=== PATIENT | female | born 2000 | race Caucasian/White ===

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

== ENCOUNTER 2020-01-04 15:59 | Outpatient (CLI) | payer OTHER ==
[2020-01-04 17:13] VITALS: BP 134/84; PULSE 114; RESP 16; TEMP 97.6
--- NOTE | 2020-01-18 08:46 | P.MSEPDOC ---
Presenting Problems - Arrival Data Date of Arrival on Unit: 01/04/20 Time of Arrival on Unit: 15:59 Mode of Transport: Ambulatory - Complaint OB-Reason for Admission/Chief Complaint: Possible Onset of Labor Comment: Pt states she has been having contractions since 0200 every 1-2 mins and rates them 12/08 Medical History - Information : 1 Para: 0 Term: 0 : 0 Abortions: Spontaneous or Elective: 0 Number of Living Children: 0 - Gestational Age Gestational Age by SABINO (wks/days): 39 Weeks and 3 Days Review of Systems - Review of Systems Constitutional: No problems Breast: No problems ENT: No problems Cardiovascular: No problems Respiratory: No problems Gastrointestinal: No problems Genitourinary: No problems Musculoskeletal: No problems Neurological: No problems Skin: No problems Vital Signs - Temperature Temperature: 97.6 F Temperature Source: Temporal Artery Scan - Pulse Pulse Oximetery Pulse Rate: 114 Pulse Assessment Method: Automatic Cuff - Respirations Respiratory Rate: 16 Oxygen Delivery Method: Room Air O2 Sat by Pulse Oximetry: 96 - Blood Pressure Right Arm Blood Pressure: 134/84 Blood Pressure Mean: 100 Blood Pressure Source: Automatic Cuff Medical Screen Scoring (Pre) - Cervical Exam Dilation: 1-3 cm = 1 Membranes: Intact - Uterine Contractions Frequency: N/A Duration: N/A Intensity: N/A - Maternal Vital Signs Maternal Temperature: N/A Maternal Blood Pressure: N/A Signs of Preeclampsia: N/A Maternal Respirations: N/A - Maternal Trauma Maternal Trauma: N/A - Assessment - Baby A Baseline FHR: 140 Heart Rate - NICHD Category: Category I (Normal) = 0 NST: Reactive Position: N/A Station: N/A - Total Score - Baby A Total Score - Baby A: 1 - Total Score - Baby B Total Score - Baby B: 1 - Total Score - Baby C Total Score - Baby C: 1 - Level of Risk - Baby A Level of Risk - Baby A: Low (0-5) - Level of Risk - Baby B Level of Risk - Baby B: Low (0-5) - Level of Risk - Baby C Level of Risk - Baby C: Low (0-5) Physician Notification (Pre) - Physician Notified Physician Notified Date: 01/04/20 Physician Notified Time: 16:53 New Order Received: Yes Disposition - Disposition OB Disposition: Discharge to home Discharge Date: 01/04/20 Discharge Time: 17:00 I agree with the RN Medical Screening Exam: No Physician's MSE Comment: inadequate documentation Risk & Benefit of care provided described in d/c instruction: No Diagnosis: false labor
== END 2020-01-04 17:00 | disposition home or self-care (01) ==
LOC: FBPOP 15:59
PROVIDERS: ATTEND Obstetrics & Gynecology
DX: O47.1 False labor at or after 37 completed weeks of gestation (principal); Z3A.39 39 weeks gestation of pregnancy
CPT/HCPCS: 59025; G0463; 99213

== ENCOUNTER 2020-01-12 05:15 | Inpatient (IN) | payer OTHER ==
[2020-01-12] MEDS ORDERED: OXYTOCIN 10 UNIT/ML 1 ML VIAL IM PRN (06:45)
[2020-01-12] MEDS ORDERED: LIDOCAINE 0.5% (PF) 5 MG/ML (50 ML SDV) SQ PRN (06:45)
[2020-01-12] MEDS ORDERED: TERBUTALINE 1 MG/ML VIAL SQ PRN (06:45)
[2020-01-12] MEDS ORDERED: CARBOPROST TROMETHAMINE 250 MCG/ML 1 ML AMP IM PRN (06:45)
[2020-01-12] MEDS ORDERED: METHYLERGONOVINE 0.2 MG/ML 1 ML AMP IM PRN (06:45)
[2020-01-12 07:02] LABS: Basophils % (A) 0 %; Eosinophils # (A) 0.1 k/uL (0-0.7); Eosinophils % (A) 1 %; HCT 27.9 % (34.0-46.0); HGB 8.9 gm/dL (11.4-16.0); Hypochromasia Slight; Lymphocytes # (A) 2.1 k/uL (1.0-4.8); Lymphocytes % (A) 27 %; MCH 27.3 pg (25.0-35.0); MCHC 31.9 g/dL (31.0-37.0); MCV 85.6 fL (80.0-100.0); Mean Platelet Volume 11.6; Monocytes # (A) 0.6 k/uL (0-1.0); Monocytes % (A) 8 %; Neutrophils # (A) 4.8 k/uL (1.3-7.7); Neutrophils % (A) 62 %; Platelet Count 212 k/uL (150-450); RBC 3.25 m/uL (3.80-5.40); RDW 14.9 % (11.5-15.5); WBC 7.8 k/uL (4.0-11.0)
[2020-01-12 07:24] LABS: Large Platelets Present
[2020-01-12] MEDS: LACTATED RINGERS 1,000 ML IV SCH ×4 (07:41→17:35)
[2020-01-12] MEDS ORDERED: OXYTOCIN 30 UNITS/500 ML NS 30 UNIT in SALINE 1 500ML.BAG IV SCH (08:30)
--- NOTE | 2020-01-12 12:56 | P.HPOB ---
History of Present Illness H&P Date: 01/12/20 Chief Complaint: 40-4/7 weeks, early labor The patient is a 19-year-old 1 para 0 admitted at 40-4/7 weeks as established by last menstrual period and confirmed by 20 week ultrasound. She is admitted with fairly regular contractions though no cervical change following a relatively deep and prolonged deceleration while in triage lasting for approximately 4 minutes. Baseline did return to normal with good variability. At this time, all signs are reassuring. She was admitted for augmentation of labor secondary to the prolonged deceleration and her post dates status. Her has been entirely uncomplicated and group B strep status is negative. Obstetrical history: 1 para 0 with current statistics listed in history present illness. EDC of 01/08/2020 was established by last menstrual period and confirmed by 20 week ultrasound. Laboratory workup demonstrates a blood type of A+ with a negative antibody screen. Rubella status is immune. The remainder the laboratory workup was within normal limits. One hour Glucola was normal and group B strep status is negative. Gynecologic history: Uncomplicated with no history of any infections to include STDs. Review of Systems Review of systems is confined to history of present illness. Past Medical History Past Medical History: No Reported History History of Any Multi-Drug Resistant Organisms: None Reported Past Surgical History: No Surgical Hx Reported Past Anesthesia/Blood Transfusion Reactions: No Reported Reaction Past Psychological History: No Psychological Hx Reported Smoking Status: Never smoker Past Alcohol Use History: None Reported Past Drug Use History: None Reported - Past Family History Father Family Medical History: No Reported History Medications and Allergies Home Medications Medication Instructions Recorded Confirmed Type Pnv No.95/Ferrous Fum/Folic AC 1 each PO DAILY #90 tablet 05/17/19 01/12/20 Rx [ Multivitamin Tablet] Allergies Allergy/AdvReac Type Severity Reaction Status Date / Time No Known Allergies Allergy Verified 01/12/20 05:22 Exam Vital Signs Temp Pulse Resp BP 01/12/20 06:43 97.5 F L 75 18 124/72 Intake and Output 01/11/20 01/12/20 01/12/20 22:59 06:59 14:59 Other: Weight 86.183 kg In general, this is a well-developed, well-nourished white female in no acute distress though she is beginning to become uncomfortable secondary to c ontractions. Her heart has a regular rhythm and rate without murmur. Her lungs are clear to auscultation bilaterally in all [place]. Her abdomen is gravid, nondistended, has normal active bowel sounds, is soft, nontender, and without any masses aside from uterine fundus. Her extremities without any cyanosis, clubbing, or significant edema and are nontender to palpation bilaterally. Digital cervical examination demonstrates her surgery 2 cm dilated, 70% effaced, the vertex in presentation at -2 station. Artificial rupture of membranes was carried out earlier demonstrating clear fluid. Results Result Diagrams: 01/12/20 06:40 Abnormal Lab Results - Last 24 Hours (Table) 01/12/20 Range/Units 06:40 RBC 3.25 L (3.80-5.40) m/uL Hgb 8.9 L (11.4-16.0) gm/dL Hct 27.9 L (34.0-46.0) % Assessment and Plan (1) Post-dates Current Visit: Yes Status: Acute Code(s): O48.0 - POST-TERM SNOMED Code(s): 08466890 (2) Active labor at term Current Visit: Yes Status: Acute Code(s): LDG9816 - SNOMED Code(s): 65358263 Plan: The patient is admitted for augmentation of labor. Pitocin augmentation has been started and artificial rupture of membranes carried out. She will continue to have close maternal and surveillance and expectant management will be practiced. She is a good candidate for either IV or epidural analgesia, whichever she may choose.
[2020-01-12] MEDS: BUTORPHANOL 1 MG/ML 1 ML VIAL IV PRN ×2 (12:57→14:46)
[2020-01-12] MEDS ORDERED: ROPIVACAINE 5MG/ML 20ML VIAL ONE (15:38)
[2020-01-12] MEDS ORDERED: SODIUM CHLORIDE 0.9% 100 ML BAG ONE (15:38)
[2020-01-12] MEDS ORDERED: fentaNYL (PF) 50 MCG/ML 5 ML AMP ONE (15:38)
[2020-01-12] MEDS ORDERED: BENZOCAINE/MENTHOL SPRAY 1 GM/SPRAY AEROSOL TOPICAL PRN (21:30)
[2020-01-12] MEDS ORDERED: diphenhydrAMINE 50 MG CAP PO PRN (21:30)
[2020-01-12] MEDS ORDERED: ZOLPIDEM 5 MG TAB PO PRN (21:30)
[2020-01-12] MEDS ORDERED: SIMETHICONE 80 MG CHEWABLE PO PRN (21:30)
[2020-01-12] MEDS ORDERED: diphenhydrAMINE 25 MG CAP PO PRN (21:30)
[2020-01-12] MEDS ORDERED: LANOLIN CREAM 5 GM TUBE TOPICAL PRN (21:30)
[2020-01-12] MEDS ORDERED: HYDROCORTISONE 2.5% RECTAL CREAM 30 GM TUBE RECTAL PRN (21:30)
[2020-01-12] MEDS ORDERED: ACETAMINOPHEN TAB 325 MG TAB PO PRN (21:30)
[2020-01-12] MEDS ORDERED: HYDROcodone/APAP 7.5-325MG 1 EACH TAB PO PRN (21:30)
[2020-01-12] MEDS ORDERED: OXYTOCIN 20 UNITS/1000 ML NS 1,000 ML IV SCH (21:30)
[2020-01-12] MEDS ORDERED: HYDROcodone/APAP 5-325MG 1 EACH TAB PO PRN (21:30)
[2020-01-12] MEDS ORDERED: diphenhydrAMINE 50 MG/ML 1 ML VIAL IVP PRN ×2 (21:30)
--- NOTE | 2020-01-12 21:33 | P.PROBDLV ---
Vaginal Delivery Note - . Vaginal Delivery Note: The patient is a 19-year-old 1 para 0 admitted at 40-4/7 weeks by good dating parameters. She is admitted for postdates augmentation of labor in early labor and following a relatively prolonged deceleration which returned to normal baseline with a category 1 tracing. Her has been uncomplicated and group B strep status is negative. On labor and delivery, she had Pitocin augmentation started followed by artificial rupture of membranes. She made a verage progress through the latent phase of labor and had an epidural catheter placed for analgesia around the onset of the active phase of labor. She then remained 5-6 cm for approximately 4-6 hours after which time she made fairly quick progress from 6 to complete. She pushed over the course were approximately 15-20 minutes to a normal spontaneous vaginal delivery of a viable 8 lbs. 2 oz. baby boy with Apgars of 7 at 1 minute and 9 at 5 minutes delivered in the direct occiput anterior position. The placenta was delivered spontaneously, intact, and grossly normal with a grossly normal, marginally inserted three-vessel cord. There was a small second-degree laceration with extension onto the right labia which was repaired in standard fashion using 3-0 chromic catgut without difficulty. Estimated blood loss for the case was approximately 200 mL. There were no complications. All sponge, instrument, and needle counts were correct. Both mother and are resting comfortably in r ecovery.
[2020-01-12] MEDS: IBUPROFEN 600 MG TAB PO PRN (23:03)
[2020-01-13 07:22] LABS: Basophils % (A) 0 %; Eosinophils % (A) 0 %; HCT 23.9 % (34.0-46.0); HGB 7.6 gm/dL (11.4-16.0); Hypochromasia Slight; Lymphocytes # (A) 1.7 k/uL (1.0-4.8); Lymphocytes % (A) 15 %; MCH 27.4 pg (25.0-35.0); MCHC 31.8 g/dL (31.0-37.0); MCV 86.2 fL (80.0-100.0); Mean Platelet Volume 11.5; Monocytes # (A) 0.6 k/uL (0-1.0); Monocytes % (A) 5 %; Neutrophils # (A) 8.6 k/uL (1.3-7.7); Neutrophils % (A) 78 %; RBC 2.77 m/uL (3.80-5.40); RDW 15.1 % (11.5-15.5); WBC 11.1 k/uL (4.0-11.0)
[2020-01-13 08:12] LABS: Large Platelets Present; Platelet Count 159 k/uL (150-450)
--- NOTE | 2020-01-13 10:14 | P.DS ---
Providers Date of admission: 01/12/20 06:35 Expected date of discharge: 01/13/20 Attending physician: Steve Edmondson Primary care physician: Stated None - Discharge Diagnosis(es) (1) Post-dates Current Visit: Yes Status: Acute (2) Active labor at term Current Visit: Yes Status: Acute (3) Normal spontaneous vaginal delivery Current Visit: Yes Status: Acute Hospital Course: The patient is a 19-year-old 1 para 0 admitted at 40-4/7 weeks by good dating parameters. She is admitted likely in early labor but following a deep and prolonged deceleration which returned to baseline and was ultimately had category 1 tracing. Her has otherwise been uncomplicated and group B strep status is negative. On labor and delivery, she had Pitocin started followed by artificial rupture of membranes for clear fluid. She made slow progress initially into the active phase of labor and remained at approximately 567 m dilated for approximately 4-5 hours. She then progressed fairly quickly through the remainder of the active phase to complete and pushed to a normal spontaneous vaginal delivery of a viable 8 lbs. 2 oz. baby boy with Apgars of 7 at 1 minute and 9 at 5 minutes. Her course was unremarkable vital signs remaining stable and her temperature was afebrile throughout. She was deemed stable for discharge on day #1 was discharged home to follow- up in the office in 6 weeks' time routinely. Discharge instructions included calling for any significantly increased bleeding or foul-smelling lochia, significantly increased fever abdominal pain, perineal complaints, breast complaints, or anything else that concerned her. She was additionally instructed to have nothing in the vagina for at least 6 weeks time to include intercourse. She understood her instructions and agrees to follow up as noted above. Discharge medications included continued vitamins as she is currently intending to attempt to breast-feed. She was otherwise to use [id number] analgesic pain medications as needed. Maternal blood type is A+ and rubella status is immune. She does have a moderate amount of anemia was encouraged to use iron sulfate 1-2 times daily for the next month to rebuild her hemoglobin. Procedures: #1. Pitocin augmentation of her 2. Artificial rupture of membranes #3. Epidural analgesia #4. Normal spontaneous vaginal delivery #5. Repair of perineal laceration Patient Condition at Discharge: Stable Plan - Discharge Summary New Discharge Prescriptions: No Action Pnv No.95/Ferrous Fum/Folic AC [ Multivitamin Tablet] 1 each PO DAILY #90 tablet Discharge Medication List Pnv No.95/Ferrous Fum/Folic AC [ Multivitamin Tablet] 1 each PO DAILY #90 tablet 05/17/19 [Rx] Follow up Appointment(s)/Referral(s): Steve Edmondson MD [STAFF PHYSICIAN] - 6 Weeks Discharge Disposition: HOME SELF-CARE
[2020-01-13] MEDS: IBUPROFEN 600 MG TAB PO PRN (13:30)
[2020-01-13] MEDS: SENNOSIDES-DOCUSATE SODIUM 1 EACH TAB PO SCH ×2 (13:32→20:36)
[2020-01-13 20:36] VITALS: BP 118/72; PULSE 92; RESP 18; TEMP 97.8
== END 2020-01-13 21:50 | disposition home or self-care (01) | DRG 807 ==
LOC: FBPOP 05:15 → 4FBP 06:35
PROVIDERS: ADMIT Obstetrics & Gynecology Obstetrics; ATTEND Obstetrics & Gynecology
PROC: 10E0XZZ Delivery of Products of Conception, External Approach (ICD-10-PCS; principal; 2020-01-12)
PROC: 0KQM0ZZ Repair Perineum Muscle, Open Approach (ICD-10-PCS; 2020-01-12)
PROC: 10907ZC Drainage of Amniotic Fluid, Therapeutic from Products of Conception, Via Natural or Artificial Opening (ICD-10-PCS; 2020-01-12)
PROC: 3E0R3BZ Introduction of Anesthetic Agent into Spinal Canal, Percutaneous Approach (ICD-10-PCS; 2020-01-12)
DX: O48.0 Post-term pregnancy (principal); Z37.0 Single live birth; O76 Abnormality in fetal heart rate and rhythm complicating labor and delivery; O70.1 Second degree perineal laceration during delivery; O90.81 Anemia of the puerperium; D64.9 Anemia, unspecified; Z79.899 Other long term (current) drug therapy; Z3A.40 40 weeks gestation of pregnancy
CPT/HCPCS: 59025; 85025; 86850; 86900; 86901; 99213

== ENCOUNTER 2023-04-30 17:27 | Emergency (ER) | payer BC, OTHER ==
--- NOTE | 2023-04-30 18:11 | ED ---
General Adult HPI - General Source: patient Mode of arrival: ambulatory Limitations: no limitations <Owen Burrows - Last Filed: 04/30/23 18:13> - General Source: patient Mode of arrival: ambulatory Limitations: no limitations <Kierra Aguirre - Last Filed: 05/01/23 03:51> - General Chief complaint: Recheck/Abnormal Lab/Rx Stated complaint: wants a test to be sure she is Time Seen by Provider: 04/30/23 18:12 - History of Present Illness Initial comments: 22-year-old female presenting to the ED with a chief complaint of test. Patient states that she has taken 3 tests which have all been positive however patient states that she is in disbelief would like to have another test. (Owen Burrows) This is a 22-year-old female who presents to the emergency department for a test. LMP was 6 weeks ago. Patient is currently and has taken 3 tests at home that have all been positive. States that she would like to have this verified here. Denies any abdominal pain or vaginal bleeding and otherwise has no complaints. (Kierra Aguirre) - Related Data Previous Rx's Medication Instructions Recorded Pnv No.95/Ferrous Fum/Folic AC 1 each PO DAILY #90 tablet 05/17/19 [ Multivitamin Tablet] Allergies Allergy/AdvReac Type Severity Reaction Status Date / Time No Known Allergies Allergy Verified 04/30/23 17:52 Review of Systems ROS Other: All systems not noted in ROS Statement are negative. <Owen Burrows - Last Filed: 04/30/23 18:13> ROS Other: All systems not noted in ROS Statement are negative. <Kierra Aguirre - Last Filed: 05/01/23 03:51> ROS Statement: Those systems with pertinent positive or pertinent negative responses have been documented in the HPI. Past Medical History Past Medical History: No Reported History History of Any Multi-Drug Resistant Organisms: None Reported Past Surgical History: No Surgical Hx Reported Past Anesthesia/Blood Transfusion Reactions: No Reported Reaction Past Psychological History: No Psychological Hx Reported Smoking Status: Never smoker Past Alcohol Use History: None Reported Past Drug Use History: Marijuana - Past Family History Father Family Medical History: No Reported History <Owen Burrows - Last Filed: 04/30/23 18:13> General Exam Limitations: no limitations General appearance: alert Extremities exam: Present: normal inspection Back exam: Present: normal inspection Neurological exam: Present: alert <Owen Burrows - Last Filed: 04/30/23 18:13> Limitations: no limitations General appearance: alert, in no apparent distress Head exam: Present: atraumatic, normocephalic, normal inspection Respiratory exam: Present: normal lung sounds bilaterally. Absent: respiratory distress, wheezes, rales, rhonchi, stridor Cardiovascular Exam: Present: regular rate, normal rhythm, normal heart sounds. Absent: systolic murmur, diastolic murmur, rubs, gallop, clicks Neurological exam: Present: alert, oriented X3, CN II-XII intact Psychiatric exam: Present: normal affect, normal mood Skin exam: Present: warm, dry, intact, normal color. Absent: rash <Kierra Aguirre - Last Filed: 05/01/23 03:51> Course Vital Signs 04/30/23 17:49 Temperature 97.9 F Pulse Rate 109 H Respiratory 16 Rate Blood Pressure 137/85 O2 Sat by Pulse 98 Oximetry Medical Decision Making <Owen Burrows - Last Filed: 04/30/23 18:13> <Kierra Aguirre - Last Filed: 05/01/23 03:51> - Medical Decision Making Quicknote portion performed. Signed Owen Burrows PA-C (Owen Burrows) This is a 22-year-old female who presents to the emergency department for a test. Was pt. sent in by a medical professional or institution? @ -No Did you speak to anyone other than the patient for history? @ -No Did you review nursing and triage notes? @ -Yes, and I agree, it is accurate with regards to the patient's symptoms. Were old charts reviewed? @ -No Differential Diagnosis? @ -Not applicable EKG interpreted by me (3pts min.)? @ -None X-rays interpreted by me (1pt min.)? @ -None CT interpreted by me (1pt min.)? @ -None U/S interpreted by me (1pt. min.)? @ -None What testing was considered but not performed? (CT, X-rays, U/S, labs)? Why? @ -None What meds were considered but not given? Why? @ -None Did you discuss the management of the patient with other professionals? @ -No Did you reconcile home meds? @ -No Was smoking cessation discussed for >3mins.? @ -No Was critical care preformed (if so, how long)? @ -No Were there social determinants of health that impacted care today? How? (Homelessness, low income, unemployed, alcoholism, drug addiction, transportation, low edu. Level, literacy, decrease access to med. care, halfway, rehab)? @ -No Was there de-escalation of care discussed even if they declined? (Discuss DNR or withdrawal of care, Hospice)? @ -No What co-morbidities impacted this encounter? (DM, HTN, Smoking, COPD, CAD, Cancer, CVA, Hep., AIDS, mental health diagnosis, sleep apnea, morbid obesity)? @ -None Was patient admitted / discharged? @ -Discharged. Urine test positive. UA negative for signs of infection or asymptomatic bacteriuria. Findings reviewed with the patient. She is advised to begin taking a vitamin and become established with an [facility] for obstetrical care. Undiagnosed new problem with uncertain prognosis? @ -None Drug Therapy requiring intensive monitoring for toxicity (Heparin, Nitro, Insulin, Cardizem)? @ -None Were any procedures done? @ -None Diagnosis/symptom? @ - Acute, or Chronic, or Acute on Chronic? @ -Acute Uncomplicated (without systemic symptoms) or Complicated (systemic symptoms)? @ -Uncomplicated Side effects of treatment? @ -None Exacerbation, Progression, or Severe Exacerbation] @ -Not applicable Poses a threat to life or bodily function? @ -No Return precautions reviewed in depth, the patient is instructed to return to the emergency department with any new, worsening, or concerning symptoms. Patient verbalized understanding. This case was discussed in detail with the attending ED physician, Dr. Bajwa. Presentation, findings, and treatment plan discussed in detail as well. (Kierra Aguirre) - Lab Data Lab Results 04/30/23 04/30/23 Range/Units 17:53 18:14 Urine Color Colorless Urine Appearance Clear (Clear) Urine pH 7.5 (5.0-8.0) Ur Specific [place] 1.016 (1.001-1.035) Urine Protein Negative (Negative) Urine Glucose (UA) Negative (Negative) Urine Ketones Negative (Negative) Urine Blood Negative (Negative) Urine Nitrite Negative (Negative) Urine Bilirubin Negative (Negative) Urine Urobilinogen <2.0 (<2.0) mg/dL Ur Leukocyte Esterase Large H (Negative) Urine RBC 2 (0-5) /hpf Urine WBC 7 H (0-5) /hpf Ur Squamous Epith Cells 2 (0-4) /hpf Urine Mucus Rare H (None) /hpf Urine HCG, Qual Detected (Not Detectd) Disposition <Owen Burrows - Last Filed: 04/30/23 18:13> Is patient prescribed a controlled substance at d/c from ED?: No <Kierra Aguirre - Last Filed: 05/01/23 03:51> Clinical Impression: Disposition: HOME SELF-CARE Instructions (If sedation given, give patient instructions): (ED) Additional Instructions: Return to the emergency department with any new, worsening, or concerning symptoms. Your test is positive. Begin taking a vitamin. Make sure if you develop any pain, you only take Tylenol. Never take ibuprofen or any other anti-inflammatories in . Contact the [facility] office as listed below to become established for ongoing obstetrical care. Referrals: None,Stated [Primary Care Provider] - 1-2 days Zeina Bucio DO [Doctor of Osteopathic Medicine] - 1-2 days
[2023-04-30 18:12] VITALS: BP 137/85; PULSE 109; RESP 16; TEMP 97.9
[2023-04-30 18:49] LABS: Appearance,Urine Clear (Clear); Bilirubin,Urine Negative (Negative); Blood,Urine Negative (Negative); Color,Urine Colorless; Glucose,Urine (UA) Negative (Negative); Ketones,Urine Negative (Negative); Leukocyte Esterase,Urine Large (Negative); Mucus,Urine Rare /hpf; Nitrite,Urine Negative (Negative); PH, Urine 7.5 (5.0-8.0); Protein,Urine Negative (Negative); RBC,Urine 2 /hpf (0-5); Specific Gravity,Urine 1.016 (1.001-1.035); Squamous Epithelial Cell,Urine 2 /hpf (0-4); Urobilinogen,Urine <2.0 mg/dL (<2.0); WBC,Urine 7 /hpf (0-5)
== END 2023-04-30 20:11 | disposition home or self-care (01) ==
LOC: EC 17:27
DX: Z32.01 Encounter for pregnancy test, result positive (principal); O99.320 Drug use complicating pregnancy, unspecified trimester; F12.90 Cannabis use, unspecified, uncomplicated
CPT/HCPCS: 81001; 81025; 99283

== ENCOUNTER 2023-07-10 22:42 | Emergency (ER) | payer OTHER ==
[2023-07-10 23:02] VITALS: RESP 16
[2023-07-11 00:08] LABS: ALT 19 U/L (4-34); AST 33 U/L (14-36); African American GFR (CKD) >90 (>60 ml/min/1.73 sqM); Albumin 3.7 g/dL (3.5-5.0); Alkaline Phosphatase 51 U/L (38-126); Anion Gap 7 mmol/L; Blood Urea Nitrogen 4 mg/dL (7-17); Calcium 9.1 mg/dL (8.4-10.2); Carbon Dioxide 20 mmol/L (22-30); Chloride 108 mmol/L (98-107); Glucose 79 mg/dL (74-99); Non-African American GFR(CKD) >90 (>60 ml/min/1.73 sqM); Potassium 4.2 mmol/L (3.5-5.1); Sodium 135 mmol/L (137-145); Total Bilirubin 0.6 mg/dL (0.2-1.3); Total Protein 6.8 g/dL (6.3-8.2)
[2023-07-11 00:26] LABS: Appearance,Urine Cloudy (Clear); Bacteria,Urine Occasional /hpf; Basophils % (A) 0 %; Bilirubin,Urine Negative (Negative); Blood,Urine Negative (Negative); Color,Urine Yellow; Eosinophils # (A) 0.1 k/uL (0-0.7); Eosinophils % (A) 2 %; Glucose,Urine (UA) Negative (Negative); HGB 11.5 gm/dL (11.4-16.0); Ketones,Urine Trace (Negative); Leukocyte Esterase,Urine Large (Negative); Lymphocytes # (A) 2.3 k/uL (1.0-4.8); Lymphocytes % (A) 33 %; MCH 30.7 pg (25.0-35.0); MCV 87.5 fL (80.0-100.0); Mean Platelet Volume 9.5; Monocytes # (A) 0.4 k/uL (0-1.0); Monocytes % (A) 5 %; Mucus,Urine Many /hpf; Neutrophils # (A) 4.1 k/uL (1.3-7.7); Neutrophils % (A) 58 %; Nitrite,Urine Negative (Negative); Platelet Count 228 k/uL (150-450); Protein,Urine Trace (Negative); RBC 3.77 m/uL (3.80-5.40); RBC,Urine 13 /hpf (0-5); RDW 13.6 % (11.5-15.5); Specific Gravity,Urine 1.021 (1.001-1.035); Squamous Epithelial Cell,Urine 11 /hpf (0-4); Urobilinogen,Urine <2.0 mg/dL (<2.0); WBC,Urine 84 /hpf (0-5)
--- NOTE | 2023-07-11 01:39 | US ---
EXAM: US , Transvaginal CLINICAL HISTORY: ITS.REASON US Reason: pain TECHNIQUE: Real-time endovaginal obstetrical ultrasound of the maternal pelvis and second or third trimester with image documentation. Endovaginal imaging was used for better evaluation of the fetus and adnexa. COMPARISON: No previous studies. FINDINGS: Fetus: Single viable intrauterine gestation is noted corresponding to 14 weeks and 5 days. Heart rate: heart rate is 144 bpm. Presentation: Fetus is in vertex presentation. Placenta: Placenta is located anteriorly without previa. Amniotic fluid: Unremarkable. Anatomy: Visualized anatomy are unremarkable. Intracranial/face anatomy not seen. Spinal anatomy not seen. Abdominal anatomy not seen. Extremities not seen. Four-chamber heart not seen. Umbilical cord not seen. BIOMETRICS Gestational age: SABINO: EFW: Estimated weight is 100 g. BPD: Biparietal diameter 2.63 cm corresponding to 14 weeks 5 days. HC: Head circumference 10.27 cm corresponding to 14 weeks 6 days. AC: Abdominal circumference 8.69 cm corresponding to 15 weeks 0 days. FL: Femur length 1.36 cm corresponding to 14 weeks 1 day. MATERNAL: Uterus: Unremarkable. No myometrial mass. Cervix: Cervix measures 3.3 cm and is closed. Free fluid: No free fluid. IMPRESSION: Single viable intrauterine gestation corresponding to 14 weeks 5 days as detailed above.
--- NOTE | 2023-07-11 02:53 | ED ---
Abdominal Pain HPI - General Chief Complaint: OB/Uterine Contractions Stated Complaint: SEVERE CRAMPS Time Seen by Provider: 07/10/23 22:53 Source: patient Mode of arrival: ambulatory Limitations: no limitations - History of Present Illness Initial Comments: 23-year-old female who presents the emergency department reporting suprapubic cramping. Patient is approximately 14 weeks . States that this evening she began having some super abdominal pain. Denies dysuria, hematuria or difficulty voiding. Denies diarrhea, constipation, black or bloody stools. No vaginal bleeding or discharge. Patient has had ultrasound demonstrating intrauterine . This is her second . She denies any trauma. No nausea or vomiting. No fevers. Patient recently treated for urinary tract infection. No other alleviating, precipitating or modifying factors - Related Data Previous Rx's Medication Instructions Recorded Pnv No.95/Ferrous Fum/Folic AC 1 each PO DAILY #90 tablet 05/17/19 [ Multivitamin Tablet] Cefpodoxime Proxetil [Vantin] 200 mg PO Q12HR #14 tab 07/11/23 Allergies Allergy/AdvReac Type Severity Reaction Status Date / Time No Known Allergies Allergy Verified 04/30/23 17:52 Review of Systems ROS Statement: Those systems with pertinent positive or pertinent negative responses have been documented in the HPI. ROS Other: All systems not noted in ROS Statement are negative. Past Medical History Past Medical History: No Reported History History of Any Multi-Drug Resistant Organisms: None Reported Past Surgical History: No Surgical Hx Reported Past Anesthesia/Blood Transfusion Reactions: No Reported Reaction Past Psychological History: No Psychological Hx Reported Smoking Status: Never smoker Past Alcohol Use History: None Reported Past Drug Use History: Marijuana - Past Family History Father Family Medical History: No Reported History General Exam Limitations: no limitations General appearance: alert, in no apparent distress Head exam: Present: atraumatic, normocephalic, normal inspection Eye exam: Present: normal appearance, PERRL, EOMI. Absent: scleral icterus, conjunctival injection, periorbital swelling ENT exam: Present: normal exam, mucous membranes moist Neck exam: Present: normal inspection. Absent: tenderness, meningismus, lymphadenopathy Respiratory exam: Present: normal lung sounds bilaterally. Absent: respiratory distress, wheezes, rales, rhonchi, stridor Cardiovascular Exam: Present: regular rate, normal rhythm, normal heart sounds. Absent: systolic murmur, diastolic murmur, rubs, gallop, clicks GI/Abdominal exam: Present: soft, tenderness (Suprapubic), normal bowel sounds. Absent: guarding, rebound, rigid Extremities exam: Present: normal inspection, full ROM, normal capillary refill. Absent: tenderness, pedal edema, joint swelling, calf tenderness Back exam: Present: normal inspection Neurological exam: Present: alert, oriented X3, CN II-XII intact Psychiatric exam: Present: normal affect, normal mood Skin exam: Present: warm, dry, intact, normal color. Absent: rash Course Vital Signs 07/10/23 07/11/23 07/11/23 22:43 01:18 02:28 Temperature 97.6 F Pulse Rate 85 81 79 Respiratory 16 16 16 Rate Blood Pressure 131/84 105/63 109/72 O2 Sat by Pulse 99 99 97 Oximetry 07/11/23 03:14 Temperature 98.7 F Pulse Rate 89 Respiratory 16 Rate Blood Pressure 110/62 O2 Sat by Pulse 97 Oximetry Medical Decision Making - Medical Decision Making Was pt. sent in by a medical professional or institution (, PA, FUSING FURNACE LOADER, urgent care, hospital, or correction...) When possible be specific @ -No Did you speak to anyone other than the patient for history (EMS, parent, family, police, friend...)? What history was obtained from this source @ -No Did you review nursing and triage notes (agree or disagree)? Why? @ -I reviewed and agree with nursing and triage notes Were old charts reviewed (outside hosp., previous admission, EMS record, old EKG, old radiological studies, urgent care reports/EKG's, correction records)? Report findings @ -No old charts were reviewed Differential Diagnosis (chest pain, altered mental status, abdominal pain women, abdominal pain men, vaginal bleeding, weakness, fever, dyspnea, syncope, h eadache, dizziness, GI bleed, back pain, seizure, CVA, palpatations, mental health, musculoskeletal)? @ -Differential Abdominal Pain Women: Appendicitis, Cholecystitis, diverticulosis, ischemic bowel, pancreatitis, hepatitis, UTI, gastroenteritis, AAA, incarcerated hernia, bowel obstruction, constipation, inflammatory bowel, hepatitis, peptic ulcer disease, splenic infarction, perforated viscus, vulvitis, ovarian torsion, PID, kidney stone, placenta abruption, this is not meant to be an all-inclusive list EKG interpreted by me (3pts min.). @ -Not done X-rays interpreted by me (1pt min.). @ -None done CT interpreted by me (1pt min.). @ -None done U/S interpreted by me (1pt. min.). @ -Yes and demonstrates intrauterine dating 14 weeks 5 days. No complicating process What testing was considered but not performed or refused? (CT, X-rays, U/S, labs)? Why? @ -None What meds were considered but not given or refused? Why? @ -None Did you discuss the management of the patient with other professionals (professionals i.e. , PA, FUSING FURNACE LOADER, lab, RT, psych nurse, social service worker, hat brim curler, teacher, surveillance sensor officer, telephonic nurse case manager)? Give summary @ -No Was smoking cessation discussed for >3mins.? @ -No Was critical care preformed (if so, how long)? @ -No Were there social determinants of health that impacted care today? How? (Homelessness, low income, unemployed, alcoholism, drug addiction, transportation, low edu. Level, literacy, decrease access to med. care, [facility], rehab)? @ -No Was there de-escalation of care discussed even if they declined (Discuss DNR or withdrawal of care, Hospice)? DNR status @ -No What co-morbidities impacted this encounter? (DM, HTN, Smoking, COPD, CAD, Cancer, CVA, ARF, Chemo, Hep., AIDS, mental health diagnosis, sleep apnea, morbid obesity)? @ -None Was patient admitted / discharged? Hospital course, mention meds given and route, prescriptions, significant lab abnormalities, going to OR and other pertinent info. @ -Discharge. Upon arrival patient was placed into room 6. Thorough history and physical exam was performed. Laboratory studies are conducted. Patient does provide a urine sample. Ultrasound is performed. Fetus is measuring 14 weeks 5 days. Positive heart rate of 144. Urinalysis does demonstrate some bacteria. Sample is not a clean-catch. Did discuss treating the patient versus awaiting cultures. As the patient is I did recommend treating the patient for which she was agreeable with this. Patient will be started on cefpodoxime as she was recently on antibiotics and failed treatment. She needs to take the antibiotics as directed. Follow-up with her MAGNETOMETER OPERATOR to ensure that the infection is cleared. Return should she have any new or worsening symptoms. Patient was agreeable this plan and she was discharged in stable condition Undiagnosed new problem with uncertain prognosis? @ -Yes Drug Therapy requiring intensive monitoring for toxicity (Heparin, Nitro, Insulin, Cardizem)? @ -No Were any procedures done? @ -No Diagnosis/symptom? @ -Acute suprapubic abdominal pain, acute UTI, second trimester Acute, or Chronic, or Acute on Chronic? @ -Acute Uncomplicated (without systemic symptoms) or Complicated (systemic symptoms)? @ -Complicated Side effects of treatment? @ -No Exacerbation, Progression, or Severe Exacerbation? @ -No Poses a threat to life or bodily function? How? (Chest pain, [place], [place], pneumonia, PE, COPD, DKA, ARF, appy, cholecystitis, CVA, Diverticulitis, Homicidal, Suicidal, threat to staff... and all critical care pts) @ -No - Lab Data Result diagrams: 07/10/23 23:55 07/10/23 23:17 Lab Results 07/10/23 07/10/23 07/10/23 Range/Units 23:17 23:55 23:55 WBC 7.0 (3.8-10.6) k/uL RBC 3.77 L (3.80-5.40) m/uL Hgb 11.5 (11.4-16.0) gm/dL Hct 33.0 L (34.0-46.0) % MCV 87.5 (80.0-100.0) fL MCH 30.7 (25.0-35.0) pg MCHC 35.0 (31.0-37.0) g/dL RDW 13.6 (11.5-15.5) % Plt Count 228 (150-450) k/uL MPV 9.5 Neutrophils % 58 % Lymphocytes % 33 % Monocytes % 5 % Eosinophils % 2 % Basophils % 0 % Neutrophils # 4.1 (1.3-7.7) k/uL Lymphocytes # 2.3 (1.0-4.8) k/uL Monocytes # 0.4 (0-1.0) k/uL Eosinophils # 0.1 (0-0.7) k/uL Basophils # 0.0 (0-0.2) k/uL Sodium 135 L (137-145) mmol/L Potassium 4.2 (3.5-5.1) mmol/L Chloride 108 H (98-107) mmol/L Carbon Dioxide 20 L (22-30) mmol/L Anion Gap 7 mmol/L BUN 4 L (7-17) mg/dL Creatinine 0.40 L (0.52-1.04) mg/dL Est GFR (CKD-EPI)AfAm >90 (>60 ml/min/1.73 sqM) Est GFR (CKD-EPI)NonAf >90 (>60 ml/min/1.73 sqM) Glucose 79 (74-99) mg/dL Calcium 9.1 (8.4-10.2) mg/dL Total Bilirubin 0.6 (0.2-1.3) mg/dL AST 33 (14-36) U/L ALT 19 (4-34) U/L Alkaline Phosphatase 51 (38-126) U/L Total Protein 6.8 (6.3-8.2) g/dL Albumin 3.7 (3.5-5.0) g/dL Urine Color Yellow Urine Appearance Cloudy H (Clear) Urine pH 6.0 (5.0-8.0) Ur Specific [place] 1.021 (1.001-1.035) Urine Protein Trace H (Negative) Urine Glucose (UA) Negative (Negative) Urine Ketones Trace H (Negative) Urine Blood Negative (Negative) Urine Nitrite Negative (Negative) Urine Bilirubin Negative (Negative) Urine Urobilinogen <2.0 (<2.0) mg/dL Ur Leukocyte Esterase Large H (Negative) Urine RBC 13 H (0-5) /hpf Urine WBC 84 H (0-5) /hpf Ur Squamous Epith Cells 11 H (0-4) /hpf Urine Bacteria Occasional H (None) /hpf Urine Mucus Many H (None) /hpf Disposition Clinical Impression: UTI (urinary tract infection), Second trimester , Abdominal cramps Disposition: HOME SELF-CARE Condition: Stable Instructions (If sedation given, give patient instructions): Urinary Tract Infection in (ED) Additional Instructions: Please take the antibiotic as directed. Have your MAGNETOMETER OPERATOR check your urine to make sure the infection improves. Return for any new or worsening symptoms Prescriptions: Cefpodoxime Proxetil [Vantin] 200 mg PO Q12HR #14 tab Is patient prescribed a controlled substance at d/c from ED?: No Referrals: None,Stated [Primary Care Provider] - 1-2 days Time of Disposition: 02:53
[2023-07-11] MEDS: CEFDINIR 300 MG CAP PO STA (03:10)
[2023-07-11 03:24] VITALS: BP 110/62; PULSE 89; TEMP 98.7
== END 2023-07-11 03:16 | disposition home or self-care (01) ==
LOC: EC 22:42
DX: O23.42 Unspecified infection of urinary tract in pregnancy, second trimester (principal); N39.0 Urinary tract infection, site not specified; O99.322 Drug use complicating pregnancy, second trimester; F12.90 Cannabis use, unspecified, uncomplicated; Z3A.14 14 weeks gestation of pregnancy
CPT/HCPCS: 36415; 76805; 80053; 81001; 85025; 99284

== ENCOUNTER 2023-08-24 02:26 | Outpatient (CLI) | payer OTHER ==
[2023-08-24] MEDS: SIMETHICONE 80 MG CHEWABLE PO STA (03:26)
[2023-08-24 03:50] LABS: Basophils % (A) 0 %; Eosinophils # (A) 0.1 k/uL (0-0.7); Eosinophils % (A) 1 %; HCT 34.8 % (34.0-46.0); HGB 11.5 gm/dL (11.4-16.0); Lymphocytes # (A) 2.1 k/uL (1.0-4.8); Lymphocytes % (A) 21 %; MCH 30.1 pg (25.0-35.0); MCHC 33.1 g/dL (31.0-37.0); MCV 90.8 fL (80.0-100.0); Mean Platelet Volume 9.5; Monocytes # (A) 0.4 k/uL (0-1.0); Monocytes % (A) 4 %; Neutrophils # (A) 7.1 k/uL (1.3-7.7); Neutrophils % (A) 72 %; Platelet Count 256 k/uL (150-450); RBC 3.83 m/uL (3.80-5.40); RDW 13.8 % (11.5-15.5); WBC 9.9 k/uL (3.8-10.6)
[2023-08-24 03:56] LABS: Amorphous Sediment,Urine Rare /hpf; Appearance,Urine Cloudy (Clear); Bacteria,Urine Few /hpf; Bilirubin,Urine Negative (Negative); Blood,Urine Small (Negative); Budding Yeast,Urine Rare /hpf; Calcium Oxalate Crystals,Urine Moderate /hpf; Color,Urine Yellow; Glucose,Urine (UA) Negative (Negative); Ketones,Urine Negative (Negative); Leukocyte Esterase,Urine Large (Negative); Mucus,Urine Rare /hpf; Nitrite,Urine Negative (Negative); PH, Urine 6.5 (5.0-8.0); Protein,Urine Trace (Negative); RBC,Urine 21 /hpf (0-5); Specific Gravity,Urine 1.023 (1.001-1.035); Squamous Epithelial Cell,Urine 18 /hpf (0-4); Urobilinogen,Urine <2.0 mg/dL (<2.0); WBC,Urine 96 /hpf (0-5)
[2023-08-24 04:58] VITALS: BP 97/57; PULSE 85; RESP 16; TEMP 97.5
--- NOTE | 2023-09-21 10:36 | P.MSEPDOC ---
Presenting Problems - Arrival Data Date of Arrival on Unit: 08/24/23 Time of Arrival on Unit: 02:26 Mode of Transport: Ambulatory - Complaint OB-Reason for Admission/Chief Complaint: Acute Nausea/Vomiting Comment: Pt presents to triage with complaints of abdominal and shoulder blade pain and vomitingx1. Medical History - Information : 2 Para: 1 Term: 1 : 0 Abortions: Spontaneous or Elective: 0 Number of Living Children: 1 - Gestational Age Gestational Age by SABINO (wks/days): 20 Weeks and 5 Days Review of Systems - Review of Systems Constitutional: No problems Breast: No problems ENT: No problems Cardiovascular: No problems Respiratory: No problems Gastrointestinal: Pain Genitourinary: No problems Musculoskeletal: No problems Neurological: No problems Skin: No problems Vital Signs - Temperature Temperature: 97.5 F Temperature Source: Temporal Artery Scan - Pulse Pulse Oximetery Pulse Rate: 85 Pulse Assessment Method: Pulse Oximetry - Respirations Respiratory Rate: 16 Oxygen Delivery Method: Room Air - Blood Pressure Right Arm Blood Pressure: 97/57 Blood Pressure Mean: 70 Blood Pressure Source: Automatic Cuff Medical Screen Scoring - Cervical Exam Membranes: Intact - Uterine Contractions Intensity: Absent Resting: Soft to palpation Physician Notification - Physician Notified Physician Notified Date: 08/24/23 Physician Notified Time: 02:50 Physician: Eileen Pierce New Order Received: Yes - Notification Comment Comment: Dr. Pierce called at home. Report given regarding G/P, GA, VS, FHT dopplar. Reported on pt complaints of sharp shoulder blade pain and right lower quadrant abdominal pain and vomiting x1. Abdomen soft to paplation, pt states nontender unless lower right quadrant is firmly pushed on. Oders for CBC and UA. Maternal Triage Index - Maternal Triage Index Presenting for scheduled procedure w/no complaint: No - Stat/Priority 1 Stat Priority 1: No - Urgent/Priority 2 Urgent Priority 2: No - Prompt/Priority 3 Prompt Priority 3: No - Non-Urgent/Priority 4 Non-Urgent Priority 4: Yes Criteria Met for Priority 4: Pt presents to triage with complaints of abdominal and shoulder blade pain and vomitingx1. Disposition - Disposition OB Disposition: Discharge to home Discharge Date: 08/24/23 Discharge Time: 04:10 I agree with the RN Medical Screening Exam: Yes Physician's MSE Comment: I have neither seen nor examined the patient Case reviewed; plan agreed upon as documented in EMR&OBIX.: Yes Diagnosis: MATERNAL CARE FOR PROBLEM, UNSP, SECOND * DO NOT USE *
== END 2023-08-24 04:10 | disposition home or self-care (01) ==
LOC: FBPOP 02:26
PROVIDERS: ATTEND Obstetrics & Gynecology
DX: O21.9 Vomiting of pregnancy, unspecified (principal); O26.892 Other specified pregnancy related conditions, second trimester; R10.31 Right lower quadrant pain; M25.519 Pain in unspecified shoulder; Z3A.20 20 weeks gestation of pregnancy
CPT/HCPCS: 36415; 85025; 81001; G0463; 99213

== ENCOUNTER 2023-09-09 21:02 | Emergency (ER) | payer OTHER ==
[2023-09-09 21:33] VITALS: RESP 18
[2023-09-09 21:52] LABS: Appearance,Urine Turbid (Clear); Bacteria,Urine Moderate /hpf; Bilirubin,Urine Negative (Negative); Blood,Urine Small (Negative); Color,Urine Yellow; Glucose,Urine (UA) Negative (Negative); Ketones,Urine Negative (Negative); Leukocyte Esterase,Urine Large (Negative); Mucus,Urine Many /hpf; Nitrite,Urine Negative (Negative); Protein,Urine 2+ (Negative); RBC,Urine 83 /hpf (0-5); Specific Gravity,Urine 1.028 (1.001-1.035); Squamous Epithelial Cell,Urine 20 /hpf (0-4); WBC,Urine 115 /hpf (0-5)
[2023-09-09] MEDS: LIDOCAINE 1% INJ 10MG/ML (20 ML MDV) SQ ONE (22:12)
--- NOTE | 2023-09-09 22:20 | ED ---
Female Urogenital HPI - General Chief complaint: Urogenital Stated complaint: vaginal pain Time Seen by Provider: 09/09/23 22:19 Source: patient, RN notes reviewed Mode of arrival: ambulatory Limitations: no limitations - History of Present Illness Initial comments: 23-year-old female presented to the ER with a chief complaint of vaginal pain. She is 23 weeks and follows up with Dr. Edmondson. Patient reports last night she noticed an increase in vaginal pain. She states is extremely painful to sit or move. She states the pain is in between her rectum and vaginal orifices and is superficial. She denies any vaginal bleeding or abdominal cramping. She also believes she has a UTI as her urine is cloudy and she has been going to the bathroom more frequently. She denies any headache, cough, congestion, fevers, chills, chest pain, shortness of breath, abdominal pain, constipation/diarrhea or peripheral edema. - Related Data Previous Rx's Medication Instructions Recorded Pnv No.95/Ferrous Fum/Folic AC 1 each PO DAILY #90 tablet 05/17/19 [ Multivitamin Tablet] Cefpodoxime Proxetil [Vantin] 200 mg PO Q12HR #14 tab 07/11/23 Nitrofurantoin Monohyd/M-Cryst 100 mg PO Q12HR #14 cap 07/14/23 [Macrobid] Cephalexin [Keflex] 500 mg PO Q6HR #40 cap 09/09/23 Allergies Allergy/AdvReac Type Severity Reaction Status Date / Time No Known Allergies Allergy Verified 09/09/23 21:18 Review of Systems ROS Statement: Those systems with pertinent positive or pertinent negative responses have been documented in the HPI. ROS Other: All systems not noted in ROS Statement are negative. Past Medical History Past Medical History: No Reported History History of Any Multi-Drug Resistant Organisms: None Reported Past Surgical History: No Surgical Hx Reported Past Anesthesia/Blood Transfusion Reactions: No Reported Reaction Past Psychological History: No Psychological Hx Reported Smoking Status: Never smoker Past Alcohol Use History: None Reported Past Drug Use History: None Reported - Past Family History Father Family Medical History: No Reported History General Exam Limitations: no limitations General appearance: alert, in no apparent distress Head exam: Present: atraumatic, normocephalic, normal inspection Respiratory exam: Present: normal lung sounds bilaterally. Absent: respiratory distress, wheezes, rales, rhonchi, stridor Cardiovascular Exam: Present: regular rate, normal rhythm, normal heart sounds. Absent: systolic murmur, diastolic murmur, rubs, gallop, clicks GI/Abdominal exam: Present: soft, normal bowel sounds. Absent: distended, tenderness, guarding, rebound, rigid External exam: Present: other (2 cm perivaginal abscess on left labia majora inferior to vaginal orifice. Tender to touch) Neurological exam: Present: alert, oriented X3, CN II-XII intact Psychiatric exam: Present: normal affect, normal mood Skin exam: Present: warm, dry, intact, normal color. Absent: rash Course Vital Signs 09/09/23 09/09/23 21:13 22:41 Temperature 98.1 F 97.8 F Pulse Rate 96 82 Respiratory 18 18 Rate Blood Pressure 119/82 109/77 O2 Sat by Pulse 99 100 Oximetry Procedures - Incision & Drainage Consent Obtained: verbal consent Site: vulva/vagina Size (cm): 2 Anesthetic Used: lidocaine 1% Amount (mLs): 5 I&D Cleaning Method: Alcohol Wipe Sterile Field Used?: Yes Scalpel Used: #11 Ultrasound used: No Needle Aspiration Performed?: No Irrigation Performed?: No I&D Drainage Obtained: Pus Insertion of drain: No Culture Obtained?: No Complications: other (placement of word catheter attemped but not successfull as abscess was too small post drainage) Patient Tolerated Procedure: well, no complications Medical Decision Making - Medical Decision Making Was pt. sent in by a medical professional or institution (, PA, [employer], urgent care, hospital, or [facility]...) When possible be specific @ -No Did you speak to anyone other than the patient for history (EMS, parent, family, police, friend...)? What history was obtained from this source @ -No Did you review nursing and triage notes (agree or disagree)? Why? @ -I reviewed and agree with nursing and triage notes Were old charts reviewed (outside hosp., previous admission, EMS record, old EKG, old radiological studies, urgent care reports/EKG's, [facility] records)? Report findings @ -No old charts were reviewed Differential Diagnosis (chest pain, altered mental status, abdominal pain women, abdominal pain men, vaginal bleeding, weakness, fever, dyspnea, syncope, headache, dizziness, GI bleed, back pain, seizure, CVA, palpatations, mental health, musculoskeletal)? @ -Bartholian abscess, cyst, HPV, UTI this list is not meant to be all- inclusive EKG interpreted by me (3pts min.). @ -None X-rays interpreted by me (1pt min.). @ -None done CT interpreted by me (1pt min.). @ -None done U/S interpreted by me (1pt. min.). @ -None done What testing was considered but not performed or refused? (CT, X-rays, U/S, labs)? Why? @ -None What meds were considered but not given or refused? Why? @ -None Did you discuss the management of the patient with other professionals (professionals i.e. , PA, [employer], lab, RT, psych nurse, outreach and education social worker, brineyard supervisor, teacher, security control room officer, case packer and sealer)? Give summary @ -No Was smoking cessation discussed for >3mins.? @ -No Was critical care preformed (if so, how long)? @ -No Were there social determinants of health that impacted care today? How? (Homelessness, low income, unemployed, alcoholism, drug addiction, transportation, low edu. Level, literacy, decrease access to med. care, group home, rehab)? @ -No Was there de-escalation of care discussed even if they declined (Discuss DNR or withdrawal of care, Hospice)? DNR status @ -No What co-morbidities impacted this encounter? (DM, HTN, Smoking, COPD, CAD, Cancer, CVA, ARF, Chemo, Hep., AIDS, mental health diagnosis, sleep apnea, morbid obesity)? @ - Was patient admitted / discharged? Hospital course, mention meds given and route, prescriptions, significant lab abnormalities, going to OR and other pertinent info. @ -Discharged. Patient is a 23-year-old female presenting to the ER with chief complaint of vaginal pain. History and physical exam completed. Vitals stable. Patient no signs of acute distress and nontoxic-appearing. A 2 cm perivaginal abscess located on left labia majora inferior to vaginal orifice. Tender to touch. Urinalysis obtained significant for large leukocyte esterases with moderate white blood cell clumps and moderate bacteria concerning of UTI. Abscess drained by Dr. Bajwa. Patient started on Keflex. Results discussed with patient, all questions answered. Advised close follow-up with Dr. Edmondson in the next 1 to 2 days. Strict return parameters discussed. Patient discharged stable condition with follow-up tube Dr. Edmondson. Patient verbally expressed understanding and agreement with care plan. Case discussed with ED attending, Dr. Bajwa. Undiagnosed new problem with uncertain prognosis? @ -No Drug Therapy requiring intensive monitoring for toxicity (Heparin, Nitro, Insulin, Cardizem)? @ -No Were any procedures done? @ -No Diagnosis/symptom? @ -Perivaginal abscess/UTI Acute, or Chronic, or Acute on Chronic? @ -Acute Uncomplicated (without systemic symptoms) or Complicated (systemic symptoms)? @ -Uncomplicated Side effects of treatment? @ -No Exacerbation, Progression, or Severe Exacerbation? @ -No Poses a threat to life or bodily function? How? (Chest pain, [place], [place], pneumonia, PE, COPD, DKA, ARF, appy, cholecystitis, CVA, Diverticulitis, Homicidal, Suicidal, threat to staff... and all critical care pts) @ -No - Lab Data Lab Results 09/09/23 Range/Units 21:37 Urine Color Yellow Urine Appearance Turbid H (Clear) Urine pH 6.0 (5.0-8.0) Ur Specific [place] 1.028 (1.001-1.035) Urine Protein 2+ H (Negative) Urine Glucose (UA) Negative (Negative) Urine Ketones Negative (Negative) Urine Blood Small H (Negative) Urine Nitrite Negative (Negative) Urine Bilirubin Negative (Negative) Urine Urobilinogen 4.0 (<2.0) mg/dL Ur Leukocyte Esterase Large H (Negative) Urine RBC 83 H (0-5) /hpf Urine WBC 115 H (0-5) /hpf Urine WBC Clumps Moderate H (None) /hpf Ur Squamous Epith Cells 20 H (0-4) /hpf Urine Bacteria Moderate H (None) /hpf Urine Mucus Many H (None) /hpf Disposition Clinical Impression: Perineal abscess, UTI (urinary tract infection) Disposition: HOME SELF-CARE Condition: Stable Instructions (If sedation given, give patient instructions): Urinary Tract Infection in Women (ED) Additional Instructions: Follow-up with Dr. Edmondson in the next 1 to 2 days. Complete full course of Keflex. Return to the ER for any new or worsening concerns. Prescriptions: Cephalexin [Keflex] 500 mg PO Q6HR #40 cap Is patient prescribed a controlled substance at d/c from ED?: No Referrals: None,Stated [Primary Care Provider] - 1-2 days Steve Edmondson MD [STAFF PHYSICIAN] - 1-2 days Time of Disposition: 22:28
[2023-09-09 22:49] VITALS: BP 109/77; PULSE 82; TEMP 97.8
== END 2023-09-09 22:47 | disposition home or self-care (01) ==
LOC: EC 21:02
DX: O23.42 Unspecified infection of urinary tract in pregnancy, second trimester (principal); N39.0 Urinary tract infection, site not specified; O99.712 Diseases of the skin and subcutaneous tissue complicating pregnancy, second trimester; L02.215 Cutaneous abscess of perineum; Z3A.23 23 weeks gestation of pregnancy
CPT/HCPCS: 99283; 81001; 87086; 56405; J2001

== ENCOUNTER 2024-01-06 06:00 | Inpatient (IN) | payer OTHER ==
[~2024-01-06 06:00] MED LIST: ERYTHROMYCIN 5 MG/GM OPHTH OINT 1 GM TUBE ONE; LIDOCAINE 0.5% (PF) 5 MG/ML (50 ML SDV) ONE; OXYTOCIN 30 UNITS/500 ML NS 500 ML IV ONE; PHYTONADIONE 1 MG/0.5 ML SYRINGE ONE
[2024-01-06] MEDS ORDERED: NALBUPHINE 10 MG/ML (10 ML MDV) ONE (09:03)
[2024-01-06] MEDS ORDERED: SODIUM CHLORIDE 0.9% 250 ML BAG ONE (10:52)
[2024-01-06] MEDS ORDERED: fentaNYL (PF) 50 MCG/ML 5 ML AMP ONE (10:52)
[2024-01-06] MEDS ORDERED: ROPIVACAINE 5 MG/ML 30 ML VIAL ONE (10:52)
[2024-01-06] MEDS ORDERED: IBUPROFEN 600 MG TAB PO ONE ×2 (15:44→22:19)
[2024-01-06] MEDS ORDERED: SENNOSIDES-DOCUSATE SODIUM 1 EACH TAB PO ONE (20:04)
[2024-01-07] MEDS ORDERED: IBUPROFEN 600 MG TAB PO ONE (05:44)
== END 2024-01-07 10:00 | disposition home or self-care (01) | DRG 560 ==
LOC: 4FBP 06:00 → UNDODISIN 01-07 10:00
PROVIDERS: ADMIT Obstetrics & Gynecology; ATTEND Obstetrics & Gynecology
PROC: 3E033VJ Introduction of Other Hormone into Peripheral Vein, Percutaneous Approach (ICD-10-PCS; principal; 2024-01-06)
PROC: 0HQ9XZZ Repair Perineum Skin, External Approach (ICD-10-PCS; principal; 2024-01-06)
PROC: 10907ZC Drainage of Amniotic Fluid, Therapeutic from Products of Conception, Via Natural or Artificial Opening (ICD-10-PCS; principal; 2024-01-06)
PROC: 10E0XZZ Delivery of Products of Conception, External Approach (ICD-10-PCS; principal; 2024-01-06)
DX: O77.0 Labor and delivery complicated by meconium in amniotic fluid (principal); O70.0 First degree perineal laceration during delivery; Z3A.40 40 weeks gestation of pregnancy; Z37.0 Single live birth
CPT/HCPCS: 85025; 86850; 86900; 86901